=== PATIENT | male | born 1960 | race Caucasian/White ===

== ENCOUNTER 2016-12-28 22:20 | Emergency (ER) | payer BC ==
[~2016-12-28] VITALS: Ht 167.6 cm; Wt 112.3 kg
[~2016-12-28 22:20] MED LIST: ALBUTEROL17 G1 IH; ALLOPURINOL300 MG PO; BUPROBAN150 MG PO; CHILD ASPIRIN81 M1 PO; CLEOCIN300 MG PO; FORTAMET500 M1 PO; INVOKANA100 MG PO; JENTADUETO 2.51 EAC2 PO; LEVAQUIN750 MG PO; MONTELUKAST SOD10 MG PO; MOTRIN600 MG PO; NORTRIPTYLINE H25 MG PO; PERCOCET 5/31 TABLET PO; ROXICODONE5 MG PO; VALIUM5 MG PO
[2016-12-28 23:13] LABS: HEMATOCRIT 46.8 % (38.0-50.0); MCH 31.6 PG (29.0-34.0); MCHC 33.8 G/DL (30.0-36.0); MCV 93.6 FL (86-99); MEAN PLAT.VOLUME 10.4 uM^3 (9.0-12.4); PLATELET COUNT 248 K/uL (156-360); RBC DIS.WIDTH-CV 11.9 % (11.8-14.6); RBC DIS.WIDTH-SD 40.8 % (39-53); WHITE BLOOD COUNT 13.4 K/uL (4.1-10.2)
[2016-12-28 23:24] LABS: CHLORIDE 101 mEq/L (99-109); POTASSIUM 4.4 mEq/L (3.7-5.4); SODIUM 135 mEq/L (136-147)
[2016-12-28 23:26] LABS: GLUCOSE 327 mg/dL (70-99)
[2016-12-28 23:27] LABS: ANION GAP 10 MEQ/L (2-14)
[2016-12-28 23:30] LABS: GFR ESTIMATE (CALCULATED) > 59 mL/min/
[2016-12-28 23:31] LABS: UREA NITROGEN (BUN) 12 mg/dL (9-23)
[2016-12-29] MEDS ORDERED: PROMETHAZINE HC50 M1 PO (00:02)
[2016-12-29] MEDS ORDERED: CLONIDINE HCL0.2 MG PO (00:03)
[2016-12-29] MEDS ORDERED: SEROQUEL50 MG PO (00:03)
[2016-12-29 00:13] VITALS: BP 150/86
== END 2016-12-29 00:19 | disposition home or self-care (01) ==
LOC: EME 22:20
PROVIDERS: Emergency Medicine
DX: F11.23 Opioid dependence with withdrawal (principal); R51 Headache; R68.83 Chills (without fever); R11.0 Nausea; M79.1 Myalgia; I10 Essential (primary) hypertension; E11.9 Type 2 diabetes mellitus without complications; Z79.82 Long term (current) use of aspirin
CPT/HCPCS: 80048; 85027; 99281; 99285; J7030; Q0169

== ENCOUNTER 2017-01-08 13:06 | Emergency (ER) | payer BC ==
[~2017-01-08] VITALS: Ht 170.2 cm; Wt 113.6 kg
[~2017-01-08 13:06] MED LIST changes: +CLONIDINE HCL0.2 MG PO; +PROMETHAZINE HC50 M1 PO; +SEROQUEL50 MG PO
[2017-01-08] MEDS ORDERED: ZOFRAN4 MG PO (13:47)
[2017-01-08] MEDS ORDERED: CLONIDINE HCL0.1 MG PO (13:47)
[2017-01-08 14:41] VITALS: BP 141/78
== END 2017-01-08 14:42 | disposition home or self-care (01) ==
LOC: EME 13:06
DX: F11.23 Opioid dependence with withdrawal (principal); J45.909 Unspecified asthma, uncomplicated; E11.9 Type 2 diabetes mellitus without complications; I10 Essential (primary) hypertension; Z87.442 Personal history of urinary calculi; Z86.14 Personal history of Methicillin resistant Staphylococcus aureus infection
CPT/HCPCS: 99281; 99284